=== PATIENT | female | born 1985 | race Caucasian/White ===

== ENCOUNTER 2016-11-28 06:24 | Emergency (ER) | payer OTHER ==
[~2016-11-28] VITALS: Ht 157.5 cm; Wt 64.3 kg
[2016-11-28] MEDS ORDERED: CLON0.5T PO (06:42)
[2016-11-28] MEDS ORDERED: VENL75TA2 PO (06:42)
[2016-11-28] MEDS ORDERED: PHEN-239 PO (06:42)
[2016-11-28] MEDS ORDERED: LORazepam 1 MG TAB PO STA (07:08)
[2016-11-28 08:26] VITALS: BP 122/60
[2016-11-28] MEDS ORDERED: ATIV1TAB10 PO (08:27)
== END 2016-11-28 08:34 | disposition home or self-care (01) ==
LOC: M ED 06:24 → EDBD 06:24 → M ED 08:34
DX: F41.9 Anxiety disorder, unspecified (principal)

== ENCOUNTER 2017-07-20 14:24 | Emergency (ER) | payer OTHER | END 2017-07-20 14:55 | disposition home or self-care (01) | LOC: M ED 14:24 | DX: J06.9 Acute upper respiratory infection, unspecified (principal); F41.9 Anxiety disorder, unspecified; F17.200 Nicotine dependence, unspecified, uncomplicated; Z79.899 Other long term (current) drug therapy | CPT/HCPCS: 99283 ==

== ENCOUNTER 2018-07-02 20:15 | Emergency (ER) | payer OTHER ==
[~2018-07-02] VITALS: Ht 160 cm; Wt 63.6 kg
[2018-07-02 20:15] VITALS: BP 118/74
[~2018-07-02 20:15] MED LIST: ATIV1TAB10 PO; CLON0.5T8 PO; FLON1SPR; PHEN-239 PO; SUDATAB18 PO; TESS100C PO; VENL75TA2 PO
[2018-07-02] MEDS ORDERED: TOPI25TA10 (20:29)
[2018-07-02 21:28] LABS: INFLUENZA A AMPLIFICATION NEGATIVE (NEGATIVE); INFLUENZA B AMPLIFICATION NEGATIVE (NEGATIVE)
== END 2018-07-02 22:12 | disposition home or self-care (01) ==
LOC: M ED 20:15
DX: J02.9 Acute pharyngitis, unspecified (principal); F41.9 Anxiety disorder, unspecified; Z87.891 Personal history of nicotine dependence; Z79.899 Other long term (current) drug therapy

== ENCOUNTER 2018-12-14 19:26 | Emergency (ER) | payer OTHER ==
[~2018-12-14] VITALS: Ht 160 cm; Wt 77.0 kg
[~2018-12-14 19:26] MED LIST changes: +CLON0.5T2 PO; -CLON0.5T8 PO; +TOPI25TA10
[2018-12-14] MEDS ORDERED: MORPHINE 4 MG/ML 1ML VIAL/SYRINGE (J2270) IV ONE (21:30)
[2018-12-14] MEDS ORDERED: PERCOCET 5MG/325MG TAB PO ONE (22:15)
[2018-12-14] MEDS ORDERED: PERC5TAB12 PO (22:22)
[2018-12-14 22:31] VITALS: BP 161/70
--- NOTE | 2018-12-15 08:41 | REP ---
Right tib-fib series: Two views. History: Trauma. Findings: AP and lateral views of the proximal tibia and fibula demonstrate mild clothing artifact over the knee and distal calf. Bones, joints and soft tissues are otherwise unremarkable. No proximal tib-fib fracture seen. Impression: Negative radiographs of the mid and proximal tib-fib. Electronically Signed by Jose Miguel Gomez MD 12/15/2018 08:33 A
--- NOTE | 2018-12-15 08:42 | REP ---
Right ankle series: Four views. History: Trauma. Findings: Four views right ankle demonstrate an obliquely oriented lateral fibular metaphyseal fracture. There is 2.6 mm of lateral displacement. Ankle mortise is not otherwise widened. No tibial fracture is appreciated. Impression: Obliquely oriented distal fibular metaphyseal fracture. Electronically Signed by Jose Miguel Gomez MD 12/15/2018 08:34 A
== END 2018-12-14 22:54 | disposition home or self-care (01) ==
LOC: M ED 19:26
DX: S82.431A Displaced oblique fracture of shaft of right fibula, initial encounter for closed fracture (principal); W10.9XXA Fall (on) (from) unspecified stairs and steps, initial encounter; Y92.009 Unspecified place in unspecified non-institutional (private) residence as the place of occurrence of the external cause; Y93.01 Activity, walking, marching and hiking; Z79.899 Other long term (current) drug therapy
CPT/HCPCS: 73590; 73610; 96374; 99284; J2270

== ENCOUNTER 2019-02-25 18:50 | Emergency (ER) | payer OTHER ==
[~2019-02-25] VITALS: Ht 160 cm; Wt 75.0 kg
[~2019-02-25 18:50] MED LIST changes: -CLON0.5T2 PO; +CLON0.5T8 PO; +PERC5TAB12 PO
[2019-02-25 18:51] VITALS: BP 138/80
[2019-02-25] MEDS ORDERED: AMOX500C PO (19:23)
[2019-02-25] MEDS ORDERED: AMOXICILLIN 500 MG CAP PO ONE (19:30)
[2019-02-25] MEDS ORDERED: IBUPROFEN 800 MG TAB PO ONE (19:45)
== END 2019-02-25 19:41 | disposition home or self-care (01) ==
LOC: M ED 18:50
DX: J02.8 Acute pharyngitis due to other specified organisms (principal); F41.9 Anxiety disorder, unspecified; Z79.899 Other long term (current) drug therapy

== ENCOUNTER 2019-10-09 02:35 | Inpatient (IN) | payer OTHER ==
[~2019-10-09] VITALS: Ht 162.6 cm; Wt 79.5 kg
[~2019-10-09 02:35] MED LIST changes: +AMOX500C PO; +CLON0.5T2 PO; -CLON0.5T8 PO
[2019-10-09] MEDS ORDERED: TETANUS/DIPHTHERIA TOX ADSORB ADULT 0.5ML SYR/VIAL (90714) IM ONE (03:00)
[2019-10-09] MEDS ORDERED: ALPR0.5T3 PO (03:02)
[2019-10-09] MEDS ORDERED: SERT-138 PO (03:02)
[2019-10-09] MEDS ORDERED: TRAZ-252 PO (03:02)
[2019-10-09 03:22] LABS: HEMATOCRIT 34.9 % (36.0-47.0); HEMOGLOBIN 11.4 g/dl (12.0-15.5); MEAN CORPUSCULAR HEMOGLOBIN 27.3 pg (27.0-33.0); MEAN CORPUSCULAR HGB CONC 32.7 g/dl (32.0-36.5); MEAN CORPUSCULAR VOLUME 83.5 fl (80.0-96.0); PLATELET COUNT, AUTOMATED 322 10^3/uL (150-450); RED BLOOD COUNT 4.18 10^6/uL (4.00-5.40); WHITE BLOOD COUNT 7.6 10^3/uL (4.0-10.0)
[2019-10-09 03:34] LABS: HCG, SERUM QUALITATIVE NEGATIVE (NEGATIVE)
[2019-10-09 03:50] LABS: ACETAMINOPHEN LEVEL < 2.0 UG/ML (10.0-30.0); ALBUMIN 3.6 GM/DL (3.2-5.2); ALT/SGPT 17 U/L (12-78); AMPHETAMINES LEVEL URINE NEGATIVE (NEGATIVE); BARBITURATES URINE NEGATIVE (NEGATIVE); BENZODIAZEPINES URINE POSITIVE (NEGATIVE); BILIRUBIN,DIRECT < 0.1 MG/DL (0.0-0.2); BILIRUBIN,TOTAL 0.2 MG/DL (0.2-1.0); BLOOD UREA NITROGEN 13 MG/DL (7-18); CALCIUM LEVEL 8.1 MG/DL (8.5-10.1); CANNABINOIDS URINE NEGATIVE (NEGATIVE); CARBON DIOXIDE LEVEL 22 MEQ/L (21-32); CHLORIDE LEVEL 110 MEQ/L (98-107); COCAINE METABOLITE URINE NEGATIVE (NEGATIVE); CPK CREATINE PHOSPHOKINASE 101 U/L (26-192); CREATININE FOR GFR 0.77 MG/DL (0.55-1.30); ETHYL ALCOHOL (ETHANOL) 0.195 % (0.000-0.010); GLOMERULAR FILTRATION RATE > 60.0 (>60); GLUCOSE, FASTING 95 MG/DL (70-100); METHADONE URINE NEGATIVE (NEGATIVE); OPIATES URINE NEGATIVE (NEGATIVE); PHENCYCLIDINE URINE NEGATIVE (NEGATIVE); POTASSIUM SERUM 3.8 MEQ/L (3.5-5.1); SALICYLATE LEVEL < 1.7 MG/DL (5.0-30.0); SODIUM LEVEL 142 MEQ/L (136-145); TOTAL PROTEIN 7.5 GM/DL (6.4-8.2)
[2019-10-09] MEDS ORDERED: LORazepam 2 MG TAB PO PRN (15:15)
[2019-10-09] MEDS ORDERED: MOM 30ML SUSPENSION UDC PO PRN (15:15)
[2019-10-09] MEDS ORDERED: MAALOX 30 ML SUSP *UDC PO PRN (15:15)
[2019-10-09 21:40] VITALS: BP 152/92
[2019-10-09] MEDS: MULTIVITAMINS/MINERALS THERAP 1 TAB PO SCH (21:55)
[2019-10-09] MEDS: FOLIC ACID 1 MG TAB PO SCH (21:55)
[2019-10-09] MEDS: SERTRALINE 100 MG TAB PO SCH (21:55)
[2019-10-09] MEDS: THIAMINE 100 MG TAB PO SCH ×2 (21:56→21:57)
[2019-10-09] MEDS: ALPRAZolam 0.5 MG TAB PO SCH ×2 (21:56→21:57)
[2019-10-09 22:00] VITALS: BP 152/92
[2019-10-09] MEDS ORDERED: traZODone 50 MG TAB PO PRN (22:15)
[2019-10-10 07:04] VITALS: BP 126/60
[2019-10-10 07:08] VITALS: BP 126/60
[2019-10-10] MEDS: THIAMINE 100 MG TAB PO SCH ×2 (09:00→20:46)
[2019-10-10] MEDS: MULTIVITAMINS/MINERALS THERAP 1 TAB PO SCH (09:00)
[2019-10-10] MEDS: FOLIC ACID 1 MG TAB PO SCH (09:00)
[2019-10-10] MEDS: ALPRAZolam 0.5 MG TAB PO SCH ×3 (09:00→20:46)
[2019-10-10] MEDS: ACETAMINOPHEN TAB 650MG DOSE (2X325MG) PO PRN ×2 (09:00→15:37)
[2019-10-10] MEDS: SERTRALINE 100 MG TAB PO SCH (09:01)
[2019-10-10 14:00] VITALS: BP 111/58
[2019-10-10 16:42] VITALS: BP 111/58
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
--- NOTE | 2019-10-10 17:28 | HPEPDOC ---
General Date of Admission Oct 09, 2019 at 15:06 Date of Service: Oct 10, 2019 Chief Complaint The patient is a 33-year-old female admitted with a reason for visit of Unspecified Depressive Disorder. Source: Patient History of Present Illness 33 year old female was brought to the ED by police as she was cutting her left wrist with suicidal intent . She had to be tasered to be brought tot ED as she had refused to come and continued to cut herself. She was admitted for depression with suicidal attempt. Today she did not offer any complaints except for mild discomfort about 2/10 in the left wrist where there are multiple superficial cuts. Its throbbing in nature , no radiation. controlled with tylenol. Home Medications Scheduled Alprazolam (Alprazolam) 0.5 Mg Tablet, 0.5 MG PO TID, (Reported) Sertraline HCl (Sertraline HCl) 100 Mg Tablet, 200 MG PO DAILY, (Reported) Allergies Coded Allergies: trazodone (Verified Adverse Reaction, Intermediate, CONFUSION/LETHARGIC, 10/09/19) Past Medical History Medical History depression Surgical History C/S x 2 Family History Significant Family History: Cancer (maternal grandmother breast cancer), Heart disease (maternal grandfather) Social History * Smoker: Denies Alcohol: Denies Drugs: denies A-FIB/CHADSVASC A-FIB History Current/History of A-Fib/PAF?: No Age/Risk Factor Scoring CHADSVASC: CHADSVASC Response (Comments) Value Age Risk Factor Age < 65 years old 0 Gender Risk Factor Female 1 Hx of CHF No 0 Hx of HTN No 0 Hx of Stroke/TIA/or VTE No 0 Hx of Diabetes No 0 Hx of Vascular Disease No 0 Total 1 Review of Systems Constitutional: Denies: Chills, Fever, Night Sweats Eyes: Denies: Pain, Vision change ENT: Reports: Head Aches; Denies: Ear Pain, Dysphagia Skin: Denies: Rash, Lesions, Breakdown Pulmonary: Denies: Dyspnea, Cough Cardiovascular: Denies: Chest Pain, Palpitations, Orthopnea, Paroxysmal Noc. D yspnea, Lt Headedness Gastrointestinal: Denies: Nausea, Vomiting, Abdominal Pain, Diarrhea Genitourinary: Denies: Dysuria, Frequency, Incontinence, Retention Hematologic: Denies: Bruising, Bleeding Excessively Musculoskeletal: Reports: Other Symptoms (left forearm pain); Denies: Neck Pain, Back Pain, Joint Pain, Muscle Pain, Spasms Physical Examination General Exam: Positive: Alert, Cooperative, No Acute Distress Eye Exam: Positive: PERRLA, Conjunctiva & lids normal, EOMI; Negative: Sclera icteric ENT Exam: Positive: Atraumatic, Mucous membr. moist/pink, Pharynx Normal Neck Exam: Positive: Supple; Negative: JVD, thyromegaly Chest Exam: Positive: Clear to auscultation, Normal air movement Heart Exam: Positive: Rate Normal, Regular Rhythm, Normal S1, Normal S2; Negative: Murmurs, Rubs Abdomen Exam: Positive: Normal bowel sounds, Soft; Negative: Tenderness, Hepatospenomegaly Extremity Exam: Positive: Normal pulses; Negative: Clubbing, Cyanosis, Edema Skin Exam: Positive: Nl turgor and temperature, Other skin issue (Superficial cuts on the left forearam just above the wrist. ); Negative: Lesion Neuro Exam: Positive: Normal Gait, Normal Speech, Strength at 5/5 X4 ext, Cranial Nerves 3-12 NL, Reflexes 2+ Vital Signs Vital Signs Date Time Temp Pulse Resp B/P (MAP) Pulse Ox O2 Delivery O2 Flow Rate FiO2 10/10/19 16:42 98.3 61 16 111/58 (75) 10/10/19 07:04 98 Room Air Assessment/Plan 33 year old female was brought to the ED by police as she was cutting her left wrist with suicidal intent . She had to be tasered to be brought tot ED as she had refused to come and continued to cut herself. She was admitted for depression with suicidal attempt. Depression with suicidal attempt as per psychiatry. No acute medical complaints at present will sign off. Plan / VTE VTE Prophylaxis Ordered?: No BEAU BARRIENTOS MD Oct 10, 2019 17:28
[2019-10-10] MEDS: ARIPiprazole 2 MG TAB PO SCH (20:46)
[2019-10-10] MEDS ORDERED: traZODone 100 MG TAB PO SCH (21:00)
[2019-10-10 22:00] VITALS: BP 116/60
[2019-10-11 06:53] VITALS: BP 112/56
[2019-10-11] MEDS: ALPRAZolam 0.5 MG TAB PO SCH ×3 (08:30→20:29)
[2019-10-11] MEDS: THIAMINE 100 MG TAB PO SCH ×2 (08:31→20:29)
[2019-10-11] MEDS: MULTIVITAMINS/MINERALS THERAP 1 TAB PO SCH (08:31)
[2019-10-11] MEDS: SERTRALINE 100 MG TAB PO SCH (08:31)
[2019-10-11] MEDS: ACETAMINOPHEN TAB 650MG DOSE (2X325MG) PO PRN (08:31)
[2019-10-11] MEDS: FOLIC ACID 1 MG TAB PO SCH (08:31)
[2019-10-11 16:16] VITALS: BP 116/57
--- NOTE | 2019-10-11 19:42 | MHIPNPDOC ---
[facility] Progress Note Progress Note DATE OF SERVICE: 10/11/19 HISTORY: As per previous notes: "Patient is a 33 -year-old , female, who as per ED report: "Patient is now sober and appropriate for interview. She verified that all information provided by police was accurate. This includes: Patient was arguing with her while intoxicated. She felt suicidal & began cutting her arm. dialed 911. When police arrived, patient was no onger cuting & had set the knife down. In police presence, she again picked up the knife and began cutting herself again. Police then discharged a taser in order to subdue & take her into custody. Patient states that she has been depressed for several years, with outpatient treatment in [place] prior to moving to [place] a few years ago. Since that time she has had difficulty managing her depression, having unsuccessfully been tried on many antidepressants. She reports continuing to suffer with poor sleep, often self-medicating with alcohol. She describes marital difficulty, which was the sourse of last night's arguing. She maintains that she was indded trying to kill herself last night & does not suggest that her behavior was a result of drinking". VITAL SIGNS: See below. NEW TEST RESULTS: See below CURRENT MEDICATIONS: See below. MENTAL STATUS EXAMINATION: General Appearance: well groomed, appears stated age, hospital scrubs/clothing with good eye contact and good hygiene Build: average Demeanor: pleasant and cooperative Eye Contact: good Activity: calm, not restless anymore Behavior: cooperative Speech: clear, spontaneous, normal volume Mood: less anxious, not depressed today, "better" Affect: full, appropriate, congruent with mood Thought Process: logical/linear Thought Content (Delusions): none reported Thought Content (Other): She denies SI/HI, denies thought delusions Thought Content (Aggressive): none reported Perception (Hallucinations): none reported Perception (Other): none reported Cognition (Impairment of): none reported Cognition(Intelligence Est.): average Oriented: Awake, Alert, Oriented times three Insight: good Judgment: Improved Psychosis: Denies Diagnoses 1. Major Depressive disorder, recurrent, moderate-severe 2. Unspecified trauma/stressor disorder 3. Panic Disorder 4. WILLI ASSESSMENT: patient's mood and affect are improving, she smiles at times, she is motivated and goal directed. She is sill having sleep problems but this is because her roommate stresses her out. She is insightful today, she ismotivated for change. This marketing underwriter plans to discharge her tomorrow, I have notified the Nursing Staff and I will contact her river transportation worker to let her know to plan for a safe discharge. MANAGEMENT PLAN: if she is stable tomorrow and if her has no concerns ab out her going back home, I will discharge her in the evening but previously I have to assess her to make sure she is fine. TIME SPENT: 20 minutes. Vital Signs Vital Signs Date Time Temp Pulse Resp B/P (MAP) Pulse Ox O2 Delivery O2 Flow Rate FiO2 10/11/19 16:16 98.4 72 16 116/57 (76) 10/11/19 06:53 Room Air 10/10/19 07:04 98 Current Medications Current Medications Medications (Trade) Dose Ordered Sig/Itzel Route PRN Reason Start Time Stop Time Status Last Admin Dose Admin Acetaminophen (Tylenol Tab) 650 mg Q6HP PRN PO HEADACHE or DISCOMFORT 10/09/19 15:15 10/11/19 08:31 Al Hydrox/Mg Hydrox/Simethicone (Mylanta) 30 ml Q4HP PRN PO HEARTBURN/INDIGESTION 10/09/19 15:15 Alprazolam (Xanax) 0.5 mg TID PO 10/09/19 16:00 10/11/19 15:44 Aripiprazole (AbiLIFY) 2 mg QHS PO 10/10/19 21:00 10/10/19 20:46 Folic Acid (Folic Acid) 1 mg DAILY PO 10/09/19 09:00 10/11/19 08:31 Home Med (Med Rec Complete!) ASDIRECTED XX 10/09/19 11:00 10/09/19 10:50 DC Lorazepam (Ativan) 2 mg ASDIRECTED PRN PO SEE PROTOCOL 10/09/19 15:15 Magnesium Hydroxide (Milk Of Magnesia) 30 ml DAILYPRN PRN PO CONSTIPATION 10/09/19 15:15 Multivitamins (Theragram-M) 1 tab DAILY PO 10/09/19 09:00 10/11/19 08:31 Sertraline HCl (Zoloft) 200 mg DAILY PO 10/09/19 09:00 10/11/19 08:31 Thiamine HCl (Thiamine HCl) 100 mg BID PO 10/09/19 15:15 10/11/19 21:01 10/11/19 08:31 Trazodone HCl (Desyrel) 50 mg QHSP PRN PO INSOMNIA 10/09/19 22:15 10/10/19 17:09 DC 10/09/19 22:31 Trazodone HCl (Desyrel) 100 mg QHS PO 10/10/19 21:00 10/10/19 20:46 Allergies Coded Allergies: trazodone (Verified Adverse Reaction, Intermediate, CONFUSION/LETHARGIC, 10/09/19) GEM NEIL MD Oct 11, 2019 19:30
[2019-10-11] MEDS: ARIPiprazole 2 MG TAB PO SCH (20:28)
[2019-10-11] MEDS ORDERED: traZODone 50 MG TAB PO SCH (21:00)
[2019-10-11] MEDS ORDERED: PILL CUTTER 1 EACH XX PRN (21:30)
[2019-10-12 06:43] VITALS: BP 130/64
[2019-10-12] MEDS: ALPRAZolam 0.5 MG TAB PO SCH ×2 (08:07→15:22)
[2019-10-12] MEDS: SERTRALINE 100 MG TAB PO SCH (08:07)
[2019-10-12] MEDS: FOLIC ACID 1 MG TAB PO SCH (08:07)
[2019-10-12] MEDS: MULTIVITAMINS/MINERALS THERAP 1 TAB PO SCH (08:07)
[2019-10-12 16:13] VITALS: BP 119/66
[2019-10-12] MEDS ORDERED: FOLI1TAB11 PO (17:33)
[2019-10-12] MEDS ORDERED: VITMTA PO (17:33)
[2019-10-12] MEDS ORDERED: TRAZ-252 PO (17:33)
[2019-10-12] MEDS ORDERED: ABIL1TAB13 PO (17:33)
[2019-10-12] MEDS ORDERED: ALPR0.5T3 PO (17:33)
[2019-10-12] MEDS ORDERED: traZODone 50 MG TAB PO SCH (21:00)
--- NOTE | 2019-10-15 18:58 | MHDSPDOC ---
[facility] Discharge Summary Discharge Summary DATE OF ADMISSION: Oct 09, 2019 at 15:06 DATE OF DISCHARGE: 10/12/19 DISCHARGE DIAGNOSES: 1. Major Depressive disorder, recurrent, moderate-severe 2. Unspecified trauma/stressor disorder 3. Panic Disorder 4. WILLI REASON FOR ADMISSION: As per previous notes: "Patient is a 33 -year-old , female, who as per ED report: "Patient is now sober and appropriate for interview. She verified that all information provided by police was accurate. This includes: Patient was arguing with her while intoxicated. She felt suicidal & began cutting her arm. dialed 911. When police arrived, patient was no onger cuting & had set the knife down. In police presence, she again picked up the knife and began cutting herself again. Police then discharged a taser in order to subdue & take her into custody. Patient states that she has been depressed for several years, with outpatient treatment in [place] prior to moving to [place] a few years ago. Since that time she has had difficulty managing her depression, having unsuccessfully been tried on many antidepressants. She reports continuing to suffer with poor sleep, often self-medicating with alcohol. She describes marital difficulty, which was the sourse of last night's arguing. She maintains that she was indded trying to kill herself last night & does not suggest that her behavior was a result of drinking". CONSULTANTS INVOLVED: none TREATMENT AND PROGRESS ON THE UNIT : She was treated with Zoloft and Abilify. Abilify because she is impulsive at times and to boost the effect of Zoloft. She has taken antidepressants before but she stops responding to them, so, Abilify would benefit her giving a boost to the antidepressant effect of Zoloft. She has been pleasant and cooperative. She has been feeling guilty for this recent episode, where she got drunk and had taken her Xanax. She has repeatedly said that she doesn't remember cutting herself and that it was the first time she did this. She admits to a previous history of depression and anxiety, a troubled childhood because her parents did not provide the right environment for her to feel protected, loved and safe. She was very tearful and fearful during her firs t 24 hours of hospitalizations but during the second day, she showed a substantial improvement. She says that she misses her family and feels very guilty for this previous experience. She is worried about talking to her daughter about this but she says she will. She had a good response to medications, she is optimistic, she wants to feel better, she is interested in going to therapy and having her going to therapy too ( he has told her he will) because she wants to save her marriage and be there, depression free, for her family. HOSPITAL COURSE: As above DISCHARGE ASSESSMENT: The patient was future orientated, she was not suicidal, not homicidal and not psychotic. She was able to contract for safety and her reported no concerns about her being discharged back home. MENTAL STATUS EXAMINATION ON DISCHARGE: General Appearance: well groomed, appears stated age, hospital scrubs/clothing with good eye contact and good hygiene Build: average Demeanor: pleasant and cooperative Eye Contact: good Activity: calm and cooperative Behavior: cooperative Speech: clear, spontaneous, normal volume Mood: "I'm doing really well" Affect: full, appropriate, congruent with mood Thought Process: logical/linear Thought Content (Delusions): none reported Thought Content (Other): She denies SI/HI, denies thought delusions Thought Content (Aggressive): none reported Perception (Hallucinations): none reported Perception (Other): none reported Cognition (Impairment of): none reported Cognition(Intelligence Est.): average Oriented: Awake, Alert, Oriented times three Insight: good Judgment: Improved Psychosis: Denies MEDICATIONS ON DISCHARGE: Scheduled Alprazolam (Alprazolam) 0.5 Mg Tablet, 0.5 MG PO TID for anxiety, #21 Aripiprazole (Abilify) 2 Mg Tablet, 2 MG PO QHS for mood, #7 Folic Acid (Folic Acid) 1 Mg Tablet, 1 MG PO DAILY for nuritional supplement, #7 Multivitamins (Thera M Plus Tablet) 1 Each Tablet, 1 TAB PO DAILY for nutritioonal suplement, #7 Sertraline HCl (Sertraline HCl) 100 Mg Tablet, 200 MG PO DAILY, (Reported) Trazodone HCl (Trazodone HCl) 50 Mg Tablet, 75 MG PO QHS for insomnia, #11 PLAN/FOLLOWUP ARRANGEMENTS: * Medical * Medical Follow Up [facility] * Established With This Provider Yes * Therapist MESERET CHAVEZ * Date Oct 19, 2019 * Time 10:00 * Address of Clinic or Practice [address], [place] [address] * Follow Up Care Education Label * Mental Health Appt 1 * Mental Health [facility] * Established With This Provider Yes * Therapist MARGARITO MAGALLANES * Date Oct 16, 2019 * Time 10:00 * * Additional information Appointment via telehealth. The amount of time spent in the coordination of care for this patient was approximately 30 minutes. Vital Signs/I&Os Vital Signs Date Time Temp Pulse Resp B/P (MAP) Pulse Ox O2 Delivery O2 Flow Rate FiO2 10/12/19 16:13 98.3 67 18 119/66 (83) 10/11/19 06:53 Room Air 10/10/19 07:04 98 Medications Scheduled Alprazolam (Alprazolam) 0.5 Mg Tablet, 0.5 MG PO TID for anxiety, #21 Aripiprazole (Abilify) 2 Mg Tablet, 2 MG PO QHS for mood, #7 Folic Acid (Folic Acid) 1 Mg Tablet, 1 MG PO DAILY for nuritional supplement, #7 Multivitamins (Thera M Plus Tablet) 1 Each Tablet, 1 TAB PO DAILY for nutritioonal suplement, #7 Sertraline HCl (Sertraline HCl) 100 Mg Tablet, 200 MG PO DAILY, (Reported) Trazodone HCl (Trazodone HCl) 50 Mg Tablet, 75 MG PO QHS for insomnia, #11 Allergies Coded Allergies: trazodone (Verified Adverse Reaction, Intermediate, CONFUSION/LETHARGIC, 10/09/19) GEM NEIL MD Oct 12, 2019 17:36
== END 2019-10-12 18:20 | disposition home or self-care (01) | DRG 885 ==
LOC: M ED 02:35 → M ED INP 15:06 → M PSY 21:12
PROVIDERS: ADMIT Psychiatry & Neurology Addiction Medicine; ATTEND Psychiatry & Neurology Psychiatry
DX: F33.2 Major depressive disorder, recurrent severe without psychotic features (principal); F41.1 Generalized anxiety disorder; F10.129 Alcohol abuse with intoxication, unspecified; F41.0 Panic disorder [episodic paroxysmal anxiety]; F43.20 Adjustment disorder, unspecified; Z63.0 Problems in relationship with spouse or partner; Z81.3 Family history of other psychoactive substance abuse and dependence; Z81.1 Family history of alcohol abuse and dependence; Z79.899 Other long term (current) drug therapy; Z62.811 Personal history of psychological abuse in childhood; Z62.810 Personal history of physical and sexual abuse in childhood

== ENCOUNTER 2020-08-23 11:00 | Emergency (ER) | payer OTHER ==
[~2020-08-23] VITALS: Ht 160 cm; Wt 79.7 kg
[~2020-08-23 11:00] MED LIST changes: +ABIL1TAB13 PO; +ALPR0.5T3 PO; +FOLI1TAB11 PO; +SERT-138 PO; +TRAZ-252 PO; +VITMTA PO
[2020-08-23] MEDS ORDERED: AMPH1TAB2 (11:23)
[2020-08-23] MEDS ORDERED: VENL75CA47 (11:23)
[2020-08-23] MEDS ORDERED: ACETAMINOPHEN 325 MG TAB PO ONE (12:25)
[2020-08-23] MEDS ORDERED: FLON1SPR NARES (12:26)
[2020-08-23] MEDS ORDERED: CLAR5TAB7 PO (12:26)
[2020-08-23] MEDS ORDERED: TESS100C PO (12:26)
[2020-08-23 12:44] VITALS: BP 121/82
== END 2020-08-23 12:50 | disposition home or self-care (01) ==
LOC: M ED 11:00
DX: J32.9 Chronic sinusitis, unspecified (principal); Z88.8 Allergy status to other drugs, medicaments and biological substances

== ENCOUNTER → 2021-04-02 | Outpatient (CLI) | payer OTHER ==
[~2021-04-02] MED LIST changes: +AMPH1TAB2; +CLAR5TAB7 PO; +FLON1SPR NARES; +VENL75CA47
--- NOTE | 2021-04-02 12:38 | REP ---
INDICATION: UTERUS DIDELPHYS/DYSMENORRHEA COMPARISON: None. TECHNIQUE: Transabdominal pelvic ultrasound followed by transvaginal examination for better evaluation of the endometrium and adnexa with color Doppler evaluation of the ovaries. FINDINGS: Bladder is under distended but unremarkable and measures 4.6 x 2.8 x 5.7 cm. The right uterine component is anteverted and measures 7.7 x 3.1 x 3.7 cm with endometrial complex 13.9 mm. There is suggestion for a 1.8 cm anterior fibroid. The left uterine component is anteverted and measures 8.3 x 2.5 x 3.9 cm with endometrial complex 15.8 mm. No discrete uterine or endometrial abnormality is otherwise identified. Bilateral ovaries are normal in appearance and vascularity without evidence for torsion. Right ovary measures 2.6 x 1.7 x 2.3 cm; R I = 0.46. Left ovary measures 3.8 x 3.3 x 3.0 cm with 2.8 cm simple likely physiologic cyst; R I = 0.54. IMPRESSION: Didelphys uterus with possible small 1.8 cm anterior fibroid in the right uterine component. Presumed physiologic left ovarian cyst. Correlation with physical examination is recommended and if necessary re-evaluation in 4-6 weeks may be obtained to evaluate for resolution. <Electronically signed by Alex Robledo > 04/02/21 [id number]
== END ==
LOC: M WHC 10:36
PROVIDERS: ATTEND Nurse Practitioner Women's Health
DX: N83.202 Unspecified ovarian cyst, left side (principal); Q51.28 Other and unspecified doubling of uterus; N94.6 Dysmenorrhea, unspecified

== ENCOUNTER → 2022-09-04 | Outpatient (REF) | payer OTHER | LOC: M SFHCWAGY 17:20 | PROVIDERS: ATTEND Nurse Practitioner Family | DX: Z12.4 Encounter for screening for malignant neoplasm of cervix (principal) | CPT/HCPCS: 87624; G0123 ==

== ENCOUNTER → 2022-12-04 | Outpatient (CLI) | payer OTHER ==
[2022-12-04 15:29] LABS: ALBUMIN 4.1 G/DL (3.2-5.2); ALKALINE PHOSPHATASE 43 U/L (46-116); ALT/SGPT 18 U/L (7.0-40); AST/SGOT 9 U/L (<34); BILIRUBIN,TOTAL 0.3 MG/DL (0.3-1.2); BLOOD UREA NITROGEN 7 MG/DL (9-23); CALCIUM LEVEL 9.2 MG/DL (8.5-10.1); CARBON DIOXIDE LEVEL 26 MMOL/L (20-31); CHLORIDE LEVEL 102 MMOL/L (98-107); CREATININE FOR GFR 0.77 MG/DL (0.55-1.30); FREE T4 1.14 NG/DL (0.89-1.76); GLOMERULAR FILTRATION RATE > 60.0 (>60); GLUCOSE, FASTING 91 MG/DL (60-100); POTASSIUM SERUM 4.5 MMOL/L (3.5-5.1); PROLACTIN 3.59 NG/ML; SODIUM LEVEL 135 MMOL/L (136-145); THYROID STIMULATING HORMONE 3.084 uIU/ML (0.55-4.78)
[2022-12-04 15:46] LABS: HEMOGLOBIN A1c 5.2 % (4.0-6.0)
[2022-12-08 12:07] LABS: 17 HYDROXY PROGESTERONE 227 ng/dL (.); DEHYDROEPIANDROSTERONE SULFATE 92.6 ug/dL (57.3-279.2); TESTOSTERONE FREE (DIRECT) 1.1 pg/mL (0.0-4.2)
== END ==
LOC: M PLALAB 09:15
PROVIDERS: ATTEND Nurse Practitioner Family
DX: N92.6 Irregular menstruation, unspecified (principal)
CPT/HCPCS: 36415; 80053; 82627; 83036; 83498; 84146; 84402; 84403; 84439; 84443; G0463

== ENCOUNTER → 2023-03-08 | Outpatient (CLI) | payer OTHER ==
[2023-03-08 14:03] LABS: BASO # 0.1 10^3/uL (0.0-0.2); BASO % 1.7 % (0.0-1.0); EOS # 0.3 10^3/uL (0.0-0.5); EOS % 5.9 % (0.0-3.0); HEMATOCRIT 37.1 % (36.0-47.0); HEMOGLOBIN 12.4 g/dl (12.0-15.5); LYMPH # 1.1 10^3/uL (1.5-5.0); LYMPH % 20.5 % (24.0-44.0); MEAN CORPUSCULAR HEMOGLOBIN 29.6 pg (27.0-33.0); MEAN CORPUSCULAR HGB CONC 33.4 g/dl (32.0-36.5); MEAN CORPUSCULAR VOLUME 88.5 fl (80.0-96.0); MONO # 0.4 10^3/uL (0.0-0.8); MONO % 7.2 % (2.0-8.0); NEUTROPHILS # 3.5 10^3/uL (1.5-8.5); NEUTROPHILS % 64.5 % (36.0-66.0); PLATELET COUNT, AUTOMATED 365 10^3/uL (150-450); RED BLOOD COUNT 4.19 10^6/uL (4.00-5.40); WHITE BLOOD COUNT 5.4 10^3/uL (4.0-10.0)
[2023-03-08 14:19] LABS: ERYTHROCYTE SEDIMENTATION RATE 6 mm/hr (0-20)
[2023-03-08 14:57] LABS: IRON (FE) 45 UG/DL (50-170)
[2023-03-08 14:58] LABS: RHEUMATOID FACTOR QUANT < 3.5 IU/ML (<14); TOTAL IRON BINDING CAPACITY 376 UG/DL (250-425)
[2023-03-08 14:59] LABS: ALBUMIN 3.9 G/DL (3.2-5.2); ALKALINE PHOSPHATASE 49 U/L (46-116); ALT/SGPT 25 U/L (7.0-40); AST/SGOT 17 U/L (<34); BILIRUBIN,TOTAL 0.3 MG/DL (0.3-1.2); BLOOD UREA NITROGEN 10 MG/DL (9-23); CARBON DIOXIDE LEVEL 27 MMOL/L (20-31); CHLORIDE LEVEL 102 MMOL/L (98-107); FERRITIN 9.9 NG/ML (7.3-270.7); FOLATE 9.9 NG/ML (>5.4); FREE T4 1.19 NG/DL (0.89-1.76); GLOMERULAR FILTRATION RATE > 60.0 (>60); GLUCOSE, FASTING 93 MG/DL (60-100); MAGNESIUM LEVEL 1.8 MG/DL (1.8-2.4); POTASSIUM SERUM 4.3 MMOL/L (3.5-5.1); SODIUM LEVEL 135 MMOL/L (136-145); THYROID STIMULATING HORMONE 2.052 uIU/ML (0.55-4.78); TOTAL 25(OH) VITAMIN D 17.1 NG/ML (20.0-100.0); TOTAL PROTEIN 6.7 G/DL (5.7-8.2); VITAMIN B12 LEVEL 407 PG/ML (211-911)
[2023-03-09 14:08] LABS: ANTINUCLEAR ANTIBODIES DIRECT Negative (Negative)
== END ==
LOC: M PLALAB 10:00
PROVIDERS: ATTEND Registered Nurse
DX: R53.83 Other fatigue (principal); M25.521 Pain in right elbow

== ENCOUNTER → 2023-08-04 | Outpatient (CLI) | payer OTHER ==
[2023-08-04 13:44] LABS: BASO # 0.1 10^3/uL (0.0-0.2); BASO % 1.4 % (0.0-1.0); EOS # 0.5 10^3/uL (0.0-0.5); EOS % 7.8 % (0.0-3.0); HEMATOCRIT 40.5 % (36.0-47.0); HEMOGLOBIN 13.3 g/dl (12.0-15.5); LYMPH # 1.4 10^3/uL (1.5-5.0); LYMPH % 21.9 % (24.0-44.0); MEAN CORPUSCULAR HEMOGLOBIN 29.7 pg (27.0-33.0); MEAN CORPUSCULAR HGB CONC 32.8 g/dl (32.0-36.5); MEAN CORPUSCULAR VOLUME 90.4 fl (80.0-96.0); MONO # 0.4 10^3/uL (0.0-0.8); NEUTROPHILS # 3.9 10^3/uL (1.5-8.5); NEUTROPHILS % 61.6 % (36.0-66.0); PLATELET COUNT, AUTOMATED 374 10^3/uL (150-450); RED BLOOD COUNT 4.48 10^6/uL (4.00-5.40); WHITE BLOOD COUNT 6.3 10^3/uL (4.0-10.0)
[2023-08-04 13:47] LABS: TOTAL IRON BINDING CAPACITY 368 UG/DL (250-425)
[2023-08-04 13:48] LABS: ALBUMIN 3.7 G/DL (3.2-5.2); ALKALINE PHOSPHATASE 38 U/L (46-116); ALT/SGPT 19 U/L (7.0-40); AST/SGOT 12 U/L (<34); BILIRUBIN,TOTAL 0.2 MG/DL (0.3-1.2); BLOOD UREA NITROGEN 14 MG/DL (9-23); CALCIUM LEVEL 9.6 MG/DL (8.5-10.1); CARBON DIOXIDE LEVEL 29 MMOL/L (20-31); CHLORIDE LEVEL 105 MMOL/L (98-107); CREATININE FOR GFR 0.71 MG/DL (0.55-1.30); GLOMERULAR FILTRATION RATE > 60.0 (>60); GLUCOSE, FASTING 74 MG/DL (60-100); IRON (FE) 48 UG/DL (50-170); POTASSIUM SERUM 4.4 MMOL/L (3.5-5.1); SODIUM LEVEL 139 MMOL/L (136-145); TOTAL PROTEIN 6.6 G/DL (5.7-8.2)
[2023-08-04 13:49] LABS: TOTAL 25(OH) VITAMIN D 30.4 NG/ML (20.0-100.0)
[2023-08-04 13:50] LABS: FERRITIN 5.7 NG/ML (7.3-270.7)
== END ==
LOC: M PLALAB 08:37
PROVIDERS: ATTEND Registered Nurse
DX: E61.1 Iron deficiency (principal); E55.9 Vitamin D deficiency, unspecified

== ENCOUNTER → 2024-01-12 | Outpatient (REF) | payer OTHER | LOC: M SFHCWAGY 12:28 | PROVIDERS: ATTEND Nurse Practitioner Family | DX: R39.15 Urgency of urination (principal) ==

== ENCOUNTER → 2024-02-15 | Outpatient (REF) | payer OTHER ==
[2024-02-17 15:17] LABS: HPV APTIMA Not Detected (Not Detected)
== END ==
LOC: M SFHCWAGY 17:42
PROVIDERS: ATTEND Nurse Practitioner Family
DX: Z12.4 Encounter for screening for malignant neoplasm of cervix (principal)

== ENCOUNTER → 2024-04-26 | Outpatient (CLI) | payer OTHER | LOC: M WHC 08:20 | PROVIDERS: ATTEND Nurse Practitioner Family | DX: N60.19 Diffuse cystic mastopathy of unspecified breast (principal); R92.2 Inconclusive mammogram; Z80.3 Family history of malignant neoplasm of breast ==